=== PATIENT | female | born 1975 | race Caucasian/White ===

== ENCOUNTER 2024-05-13 17:58 | Emergency (ER) | payer SELFPAY ==
[2024-05-13] MEDS: Magnesium Citrate Solution 296 ML Bottle PO ONE (19:06)
== END 2024-05-13 19:05 ==
LOC: JD.ED 17:58
DX: K64.8 Other hemorrhoids (principal); K59.00 Constipation, unspecified
CPT/HCPCS: 74018; 99283; A9270; 99282